=== PATIENT | female | born 1990 | race Caucasian/White ===

== ENCOUNTER 2017-06-24 06:32 | Emergency (ER) | payer MEDICAID ==
[~2017-06-24] VITALS: Ht 162.6 cm; Wt 74.0 kg
[~2017-06-24 06:32] MED LIST: INSU100C4 SQ; LANTUS SQ
[2017-06-24] MEDS ORDERED: DIPH25CA83 PO (06:54)
[2017-06-24] MEDS ORDERED: NAPR-56 PO (06:54)
[2017-06-24] MEDS ORDERED: AZIT250T PO (06:54)
[2017-06-24] MEDS ORDERED: LORA10TA61 PO (06:54)
[2017-06-24] MEDS ORDERED: naproxen 500mg tablet PO ONE (06:55)
[2017-06-24 07:05] VITALS: BP 143/76
== END 2017-06-24 07:06 | disposition home or self-care (01) ==
LOC: ER 06:32
DX: H66.93 Otitis media, unspecified, bilateral (principal); E11.9 Type 2 diabetes mellitus without complications; Z79.4 Long term (current) use of insulin; Z79.899 Other long term (current) drug therapy
CPT/HCPCS: 99283

== ENCOUNTER 2018-03-07 20:57 | Emergency (ER) | payer MEDICAID ==
[~2018-03-07] VITALS: Ht 162.6 cm; Wt 57.4 kg
[~2018-03-07 20:57] MED LIST changes: +AZIT250T PO; +DIPH25CA83 PO; +LORA10TA61 PO
[2018-03-07 20:59] VITALS: BP 116/76
[2018-03-07] MEDS ORDERED: AMOX-580 PO (21:24)
== END 2018-03-07 21:58 | disposition home or self-care (01) ==
LOC: ER 20:58
DX: J32.9 Chronic sinusitis, unspecified (principal); E11.9 Type 2 diabetes mellitus without complications; Z98.890 Other specified postprocedural states; Z79.2 Long term (current) use of antibiotics; Z79.4 Long term (current) use of insulin; Z79.899 Other long term (current) drug therapy
CPT/HCPCS: 99283

== ENCOUNTER 2019-03-12 21:51 | Emergency (ER) | payer MEDICAID ==
[~2019-03-12] VITALS: Ht 162.6 cm; Wt 67.8 kg
[2019-03-12 22:10] VITALS: BP 114/72
[2019-03-12] MEDS ORDERED: mupirocin 2% ointment 22GM TP STA (22:30)
[2019-03-12 22:31] LABS: URINE HCG NEGATIVE (NEG)
[2019-03-12 22:52] LABS: CLARITY,URINE SLIGHTLY CLOUDY (Clear); COLOR,URINE YELLOW (Yellow); GLUCOSE, URINE >=1000 mg/dl (Neg); KETONES,URINE NEGATIVE (Neg); LEUKOCYTE ESTERASE ,URINE TRACE (Neg); NITRITES, URINE NEGATIVE (Neg); OCCULT BLOOD,URINE SMALL (Neg); PH,URINE 6.5 (4.8-8.0); PROTEIN,URINE NEGATIVE (Neg); UA COLLECTION TYPE CLN CATCH MIDSTREAM; UROBILINOGEN,URINE 0.2 E.U/dL (0.2-1.0)
[2019-03-12 23:05] LABS: BACTERIA,URINE FEW /HPF (Neg); MUCUS STRANDS NONE SEEN /LPF (Neg); SQUAMOUS EPITHELIAL CELL,UR FEW /LPF (FEW); WBC CLUMPS,URINE MODERATE /HPF (NEGATIVE); WBC,URINE 20-30 /HPF (0-4)
[2019-03-12] MEDS ORDERED: cephalexin 250mg capsule PO ONE (23:10)
[2019-03-12] MEDS ORDERED: phenazopyridine 100mg tablet PO ONE (23:10)
[2019-03-12] MEDS ORDERED: CEPH500C5 PO (23:15)
[2019-03-12] MEDS ORDERED: FLUC150T66 PO (23:36)
== END 2019-03-13 00:08 | disposition home or self-care (01) ==
LOC: ER 21:52
DX: N39.0 Urinary tract infection, site not specified (principal); K13.0 Diseases of lips; E11.9 Type 2 diabetes mellitus without complications; F17.210 Nicotine dependence, cigarettes, uncomplicated; Z79.2 Long term (current) use of antibiotics; Z79.4 Long term (current) use of insulin; Z79.899 Other long term (current) drug therapy; Z98.890 Other specified postprocedural states
CPT/HCPCS: 81001; 81025; 87077; 87088; 87186; 99284

== ENCOUNTER 2020-09-14 20:09 | Emergency (ER) | payer MEDICAID ==
[~2020-09-14] VITALS: Ht 162.6 cm; Wt 49.6 kg
[2020-09-14 20:30] VITALS: BP 116/77
--- NOTE | 2020-09-14 22:13 | NUR ---
I WAS NOTIFIED BY THE PA THAT THE PATIENT WAS NOT IN THE ROOM AND HADN'T BEEN FOR QUITE SOME TIME. THE PATIENT WAS IN THE BATHROOM NEAR REGISTRATION AND WHEN WE KNOCKED ON THE DOOR SHE STATED SHE WAS STILL USING THE BATHROOM AND THEN FLUSHED THE TOILET AND EXITED. THERE WAS A STRONG SMOKE LIKE ODOR IN THE BATHROOM AND DRUG PARAPHERNALIA ON THE FLOOR. [facility] WAS CONTACTED TO DISPOSE OF THE CONTRABAND. PT WENT BACK TO THE ROOM TO BE SEEN BY THE PROVIDER
[2020-09-14] MEDS ORDERED: azithromycin 250mg tablet PO ONE (22:30)
[2020-09-14] MEDS ORDERED: CefTRIAXone 250MG IM Kit w/LIDOcaine IM ONE (22:30)
[2020-09-14] MEDS ORDERED: fluconazole 150mg tablet PO ONE (22:30)
[2020-09-14] MEDS ORDERED: metroNIDAZOLE 500mg tablet PO ONE (22:30)
[2020-09-14] MEDS ORDERED: PENICILLIN G BENZATHINE 2,400,000 UNIT/4 ML SYRINGE IM ONE (22:30)
--- NOTE | 2020-09-14 23:20 | NUR ---
Pt refused axb injections, but took PO medications. Pt stated she wanted to get a second opinion before being injected with abx. Pt left room and ER before recieving discharge instructions and paperwork.
== END 2020-09-14 23:26 | disposition home or self-care (01) ==
LOC: ER 20:10
DX: Q89.8 Other specified congenital malformations (principal); R21 Rash and other nonspecific skin eruption; R53.83 Other fatigue; E11.9 Type 2 diabetes mellitus without complications; Z98.890 Other specified postprocedural states; Z79.2 Long term (current) use of antibiotics; Z79.4 Long term (current) use of insulin; Z79.899 Other long term (current) drug therapy
CPT/HCPCS: 99284; J3490

== ENCOUNTER 2023-06-06 07:08 | Inpatient (IN) | payer MEDICAID ==
[~2023-06-06] VITALS: Ht 162.6 cm; Wt 50.9 kg
[~2023-06-06 07:08] MED LIST changes: +ATEN50TA41 PO; -AZIT250T PO; -DIPH25CA83 PO; -INSU100C4 SQ; +INSU100I52 SQ; +INSU100I75 SQ; -LANTUS SQ; +LEVO750T68 PO; -LORA10TA61 PO; +NEED-137 SUBCUT
[2023-06-06] MEDS ORDERED: Neutra Phos packet PO PRN (07:20)
[2023-06-06] MEDS ORDERED: insulin regular, human U-100 3ml vial - multi-dose IV PRN (07:20)
[2023-06-06] MEDS ORDERED: potassium Cl 40MEQ/1/2NS 520ml 520 ML IV PRN ×3 (07:20→10:15)
[2023-06-06] MEDS ORDERED: sodium phosphate inj. 15 MMOL in dextrose 5%-water 250 ML IV PRN (07:20)
[2023-06-06] MEDS ORDERED: sodium phosphate inj. 30 MMOL in dextrose 5%-water 250 ML IV PRN (07:20)
[2023-06-06] MEDS ORDERED: Insulin Reg/NS 100units/100mL 100 ML IV SCH (07:20)
[2023-06-06] MEDS ORDERED: sodium bicarbonate (8.4%) inj. 50 MEQ in dextrose 5% water 500ml 250 ML IV PRN (07:20)
[2023-06-06] MEDS ORDERED: potassium Cl 20 mEq SR tablet PO PRN ×6 (07:20→10:15)
[2023-06-06] MEDS ORDERED: potassium CL 20mEq in D5-1/2NS 1,000 ML IV PRN (07:20)
[2023-06-06] MEDS ORDERED: sodium bicarbonate (8.4%) inj. 100 MEQ in dextrose 5% water 500ml 500 ML IV PRN (07:20)
[2023-06-06] MEDS: normal saline 1000ml 1,000 ML IV SCH ×5 (07:29→15:20)
[2023-06-06] MEDS ORDERED: diphenhydrAMINE 50 mg/ml inj IV ONE (07:30)
[2023-06-06] MEDS ORDERED: metoclopramide 5 mg/ml inj IV ONE (07:30)
[2023-06-06 08:12] LABS: ALBUMIN 3.9 G/DL (3.4-5.0); ANION GAP 26 (8-16); BASOPHILS % (AUTO) 0.1 % (0-1); BLOOD UREA NITROGEN 18 MG/DL (7-18); BUN/CREATININE RATIO 15.8 (10.0-20.0); CALCIUM 10.7 MG/DL (8.5-10.1); CHLORIDE 94 MMOL/L (99-107); CREATININE 1.14 MG/DL (0.40-0.90); EOSINOPHILS % (AUTO) 0 % (0-6); HEMATOCRIT 45.3 % (35.0-45.0); HEMOGLOBIN 14.2 g/dl (12.0-16.0); LYMPHOCYTES # (AUTO) 1.3 X10'3 (1.1-4.8); LYMPHOCYTES % (AUTO) 4.9 % (21-51); MEAN CORPUSCULAR HEMOGLOBIN 24.2 PG (27.0-31.0); MEAN CORPUSCULAR HGB CONC 31.4 g/dL (33.0-36.5); MEAN CORPUSCULAR VOLUME 77.2 FL (78-98); MEAN PLATELET VOLUME 9.5 FL (7.4-10.4); MONOCYTES # (AUTO) 1.2 X10'3 (0-0.9); MONOCYTES % (AUTO) 4.6 % (2-12); NEUTROPHILS # (AUTO) 23.8 X10'3 (1.8-7.7); NEUTROPHILS % (AUTO) 90.4 % (42-75); PLATELET COUNT 490 X10'3 (140-440); PRO BRAIN NATRIURETIC PEPTIDE 203 PG/ML (0-125); RED BLOOD COUNT 5.87 X10'6 (4.20-5.60); RED CELL DISTRIBUTION WIDTH 15.4 % (11.5-14.5); SODIUM 138 MMOL/L (135-145); TOTAL CARBON DIOXIDE 17.7 MMOL/L (24-32); eCRCL 49 ML/MIN; eGFR 55 ML/MIN
[2023-06-06 08:15] LABS: GLUCOSE 490 MG/DL (70-104); POTASSIUM 2.9 MMOL/L (3.5-5.1)
[2023-06-06 08:18] LABS: WHITE BLOOD COUNT 26.4 X10'3 (4.5-11.0)
[2023-06-06] MEDS: potassium Cl 40MEQ/1/2NS 520ml 520 ML IV PRN ×2 (08:42→13:14)
[2023-06-06] MEDS: K and/or MAG REPLACEMENT MC SCH ×2 (08:46→20:00)
[2023-06-06] MEDS ORDERED: potassium Cl 20 mEq SR tablet PO STA (08:56)
[2023-06-06] MEDS ORDERED: insulin regular, human 10 units/0.1 ml syringe SQ ONE (09:00)
[2023-06-06 09:17] LABS: HYPOCHROMASIA 1+; MICROCYTOSIS 1+; PLATELET ESTIMATE INCREASED; TOTAL CELLS COUNTED 100
[2023-06-06 09:18] LABS: BURR CELLS 1+; SCHISTOCYTES FEW
[2023-06-06] MEDS ORDERED: MESSAGE TO PHARMACY PO ONE (10:10)
[2023-06-06] MEDS ORDERED: HYDROcodone/acetaminophen 5mg/325mg tablet PO PRN (10:10)
[2023-06-06] MEDS ORDERED: magnesium 4gm in 100ml NS 100 ML IV PRN ×2 (10:10→10:15)
[2023-06-06] MEDS ORDERED: morphine 2 MG/ML inj. syringe IV PRN (10:10)
[2023-06-06] MEDS ORDERED: magnesium 2GM in 50ml NS 50 ML IV PRN ×2 (10:10→10:15)
[2023-06-06] MEDS: potassium Cl 20mEq in NS 1,000 ML IV SCH ×3 (10:10→23:47)
[2023-06-06] MEDS ORDERED: dextrose 50%-water 50ml dispensing syringe IV PRN ×2 (10:10)
[2023-06-06] MEDS ORDERED: acetaminophen 325mg tablet PO PRN ×2 (10:10)
[2023-06-06] MEDS ORDERED: ondansetron/PF 4mg/2ml inj IV PRN (10:10)
[2023-06-06] MEDS ORDERED: glucagon, human recombinant 1mg kit SUBCUT PRN (10:10)
[2023-06-06] MEDS ORDERED: DEXTROSE 15 GM of carb/4 tabs (each vial/BOTTLE has 4 tablets) PO PRN ×2 (10:10)
[2023-06-06] MEDS ORDERED: magnesium Cl slow-release 64mg tablet PO PRN (10:15)
[2023-06-06] MEDS ORDERED: CefTRIAXone 2gm/D5W 50ml BAG 50 ML IV ONE (10:15)
[2023-06-06 11:55] LABS: ALBUMIN 2.9 G/DL (3.4-5.0); ANION GAP 17 (8-16); BLOOD UREA NITROGEN 17 MG/DL (7-18); CALCIUM 8.3 MG/DL (8.5-10.1); CHLORIDE 103 MMOL/L (99-107); CREATININE 0.81 MG/DL (0.40-0.90); GLUCOSE 347 MG/DL (70-104); PHOSPHORUS 2.4 MG/DL (2.3-4.5); POTASSIUM 3.4 MMOL/L (3.5-5.1); SODIUM 138 MMOL/L (135-145); eCRCL 70 ML/MIN; eGFR 81 ML/MIN
[2023-06-06] MEDS: morphine 2 MG/ML inj. syringe IV PRN ×2 (13:17→19:55)
[2023-06-06] MEDS ORDERED: normal saline 1000ml 1,000 ML IV ONE (14:15)
[2023-06-06 15:49] LABS: ALBUMIN 2.9 G/DL (3.4-5.0); ANION GAP 15 (8-16); BLOOD UREA NITROGEN 15 MG/DL (7-18); BUN/CREATININE RATIO 19.7 (10.0-20.0); CALCIUM 8.3 MG/DL (8.5-10.1); CHLORIDE 105 MMOL/L (99-107); CREATININE 0.76 MG/DL (0.40-0.90); GLUCOSE 252 MG/DL (70-104); POTASSIUM 3.9 MMOL/L (3.5-5.1); SODIUM 138 MMOL/L (135-145); TOTAL CARBON DIOXIDE 17.9 MMOL/L (24-32); eCRCL 74 ML/MIN; eGFR 87 ML/MIN
[2023-06-06] MEDS ORDERED: oxyCODONE SR 10mg (sust. release) tab PO ONE (18:05)
[2023-06-06 19:30] VITALS: BP 100/70; PULSE 111; RESP 16; TEMP 98.2; O2SAT 100
[2023-06-06] MEDS: heparin, porcine 5000 units/ml vial SQ SCH (19:55)
[2023-06-06 20:00] VITALS: RESP 18; O2SAT 96
[2023-06-06] MEDS ORDERED: K and/or MAG REPLACEMENT MC SCH (20:00)
[2023-06-06 22:00] VITALS: BP 135/93; PULSE 101; RESP 16; TEMP 98; O2SAT 100
[2023-06-06] MEDS: insulin glargine (Lantus) pen - multi-dose SQ SCH (22:44)
[2023-06-06] MEDS: HYDROcodone/acetaminophen 10/325mg tab PO PRN (23:54)
[2023-06-07] VITALS (8 sets, daily range): BP systolic 121–135; BP diastolic 70–84; PULSE 67–112; RESP 16–24; TEMP 97.6–98.8; O2SAT 96–100
[2023-06-07] MEDS: morphine 2 MG/ML inj. syringe IV PRN ×4 (04:16→23:01)
[2023-06-07] MEDS: potassium Cl 20mEq in NS 1,000 ML IV SCH ×2 (06:25→13:33)
[2023-06-07] MEDS: HYDROcodone/acetaminophen 10/325mg tab PO PRN (08:57)
[2023-06-07] MEDS: heparin, porcine 5000 units/ml vial SQ SCH ×2 (08:59→20:46)
[2023-06-07] MEDS: insulin Lispro (HumaLOG) vial - multi-dose SQ SCH ×2 (10:29→13:38)
[2023-06-07 10:51] LABS: BASOPHILS % (AUTO) 0.2 % (0-1); EOSINOPHILS % (AUTO) 0 % (0-6); HEMATOCRIT 34.4 % (35.0-45.0); LYMPHOCYTES # (AUTO) 2.9 X10'3 (1.1-4.8); LYMPHOCYTES % (AUTO) 13.9 % (21-51); MEAN CORPUSCULAR HEMOGLOBIN 23.9 PG (27.0-31.0); MEAN CORPUSCULAR HGB CONC 31.9 g/dL (33.0-36.5); MEAN PLATELET VOLUME 9.3 FL (7.4-10.4); MONOCYTES # (AUTO) 1.3 X10'3 (0-0.9); NEUTROPHILS # (AUTO) 16.7 X10'3 (1.8-7.7); NEUTROPHILS % (AUTO) 79.9 % (42-75); PLATELET COUNT 314 X10'3 (140-440); RED BLOOD COUNT 4.58 X10'6 (4.20-5.60); RED CELL DISTRIBUTION WIDTH 15.1 % (11.5-14.5); WHITE BLOOD COUNT 20.9 X10'3 (4.5-11.0)
[2023-06-07 11:22] LABS: ALANINE AMINOTRANSFERASE 12 U/L (12-78); ALBUMIN 2.4 G/DL (3.4-5.0); ALBUMIN/GLOBULIN RATIO 0.7 (1.1-1.5); ALKALINE PHOSPHATASE 97 IU/L (46-116); ANION GAP 12 (8-16); ASPARTATE AMINO TRANSFERASE 11 U/L (10-37); BILIRUBIN,TOTAL 0.4 MG/DL (0.1-1.0); BLOOD UREA NITROGEN 6 MG/DL (7-18); BUN/CREATININE RATIO 11.8 (10.0-20.0); CALCIUM 7.8 MG/DL (8.5-10.1); CHLORIDE 98 MMOL/L (99-107); CREATININE 0.51 MG/DL (0.40-0.90); GLUCOSE 200 MG/DL (70-104); MAGNESIUM 1.3 MG/DL (1.5-2.4); PHOSPHORUS 1.6 MG/DL (2.3-4.5); POTASSIUM 3.1 MMOL/L (3.5-5.1); SODIUM 131 MMOL/L (135-145); TOTAL CARBON DIOXIDE 20.9 MMOL/L (24-32); TOTAL PROTEIN 5.9 G/DL (6.4-8.2); eCRCL 125 ML/MIN; eGFR > 90 ML/MIN
[2023-06-07] MEDS: magnesium Cl slow-release 64mg tablet PO PRN ×2 (11:31→17:53)
[2023-06-07] MEDS: K and/or MAG REPLACEMENT MC SCH ×2 (12:03→20:00)
[2023-06-07] MEDS: Neutra Phos packet PO SCH ×2 (13:33→20:37)
[2023-06-07 14:07] LABS: BILIRUBIN,URINE NEGATIVE (Neg); CLARITY,URINE SLIGHTLY CLOUDY (Clear); COLOR,URINE YELLOW (Yellow); GLUCOSE, URINE 500 mg/dl (Neg); KETONES,URINE >=80 mg/dl (Neg); LEUKOCYTE ESTERASE ,URINE TRACE (Neg); NITRITES, URINE NEGATIVE (Neg); OCCULT BLOOD,URINE NEGATIVE (Neg); PH,URINE 5.5 (4.8-8.0); PROTEIN,URINE NEGATIVE (Neg); UROBILINOGEN,URINE 0.2 E.U/dL (0.2-1.0)
[2023-06-07 14:12] LABS: UA COLLECTION TYPE NON-SPECIFIED
[2023-06-07 14:13] LABS: BACTERIA,URINE FEW /HPF (Neg); MUCUS STRANDS NONE SEEN /LPF (Neg); RBC,URINE NONE SEEN /HPF (0-2); SQUAMOUS EPITHELIAL CELL,UR FEW /LPF (FEW); WBC,URINE 0-4 /HPF (0-4)
[2023-06-07] MEDS: potassium Cl 40MEQ/1/2NS 520ml 520 ML IV PRN (17:53)
[2023-06-07] MEDS ORDERED: pantoprazole 40mg Tablet.DR PO SCH (20:00)
[2023-06-07] MEDS: insulin glargine (Lantus) pen - multi-dose SQ SCH (20:45)
== END 2023-06-08 00:05 | disposition left against medical advice (07) | DRG 420 ==
LOC: ER 07:09 → ED HOLD 10:15 → PCU 3S 19:20
PROVIDERS: ADMIT Internal Medicine; ATTEND Internal Medicine
DX: E10.10 Type 1 diabetes mellitus with ketoacidosis without coma (principal); E86.0 Dehydration; E87.6 Hypokalemia; F11.23 Opioid dependence with withdrawal; F17.210 Nicotine dependence, cigarettes, uncomplicated; Z79.4 Long term (current) use of insulin; Z98.891 History of uterine scar from previous surgery; Z79.899 Other long term (current) drug therapy
CPT/HCPCS: 36415; 71045; 80048; 80053; 81001; 82948; 83605; 83735; 83880; 84100; 84145; 84484; 85007; 85025; 85651; 87040; 87077; 87081; 87088; 87186; 93005; 93306; 99285; G0378; J0696; J1200; J1644; J1815; J2270; J2405; J2765; J3480; J7030

== ENCOUNTER 2023-06-11 21:14 | Emergency (ER) | payer MEDICAID | END 2023-06-11 22:31 | disposition left against medical advice (07) | LOC: ER 21:14 | DX: Z76.0 Encounter for issue of repeat prescription (principal); Z53.21 Procedure and treatment not carried out due to patient leaving prior to being seen by health care provider ==

== ENCOUNTER 2023-08-10 11:18 | Emergency (ER) | payer MEDICAID ==
[~2023-08-10] VITALS: Ht 162.6 cm; Wt 42.0 kg
[2023-08-10 11:22] VITALS: TEMP 98.6
[2023-08-10 13:53] LABS: BASOPHILS # (AUTO) 0.1 X10'3 (0-0.2); BASOPHILS % (AUTO) 0.7 % (0-1); EOSINOPHILS # (AUTO) 0.2 X10'3 (0-0.9); EOSINOPHILS % (AUTO) 1.5 % (0-6); HEMATOCRIT 35.4 % (35.0-45.0); HEMOGLOBIN 11.4 g/dl (12.0-16.0); LYMPHOCYTES # (AUTO) 1.9 X10'3 (1.1-4.8); LYMPHOCYTES % (AUTO) 16.9 % (21-51); MEAN CORPUSCULAR HEMOGLOBIN 24.2 PG (27.0-31.0); MEAN CORPUSCULAR HGB CONC 32.2 g/dL (33.0-36.5); MEAN CORPUSCULAR VOLUME 75.1 FL (78-98); MEAN PLATELET VOLUME 8.2 FL (7.4-10.4); MONOCYTES # (AUTO) 0.7 X10'3 (0-0.9); MONOCYTES % (AUTO) 5.9 % (2-12); NEUTROPHILS # (AUTO) 8.6 X10'3 (1.8-7.7); PLATELET COUNT 312 X10'3 (140-440); RED BLOOD COUNT 4.71 X10'6 (4.20-5.60); RED CELL DISTRIBUTION WIDTH 19.1 % (11.5-14.5); WHITE BLOOD COUNT 11.5 X10'3 (4.5-11.0)
[2023-08-10 14:01] LABS: ALANINE AMINOTRANSFERASE 29 U/L (12-78); ALBUMIN 2.6 G/DL (3.4-5.0); ALBUMIN/GLOBULIN RATIO 0.7 (1.1-1.5); ALKALINE PHOSPHATASE 213 IU/L (46-116); ANION GAP 8 (8-16); ASPARTATE AMINO TRANSFERASE 22 U/L (10-37); BILIRUBIN,TOTAL 0.2 MG/DL (0.1-1.0); BLOOD UREA NITROGEN 9 MG/DL (7-18); BUN/CREATININE RATIO 17.3 (10.0-20.0); CALCIUM 8.7 MG/DL (8.5-10.1); CHLORIDE 101 MMOL/L (99-107); CREATININE 0.52 MG/DL (0.40-0.90); GLUCOSE 136 MG/DL (70-104); LIPASE 16 U/L (16-77); POTASSIUM 3.8 MMOL/L (3.5-5.1); SODIUM 137 MMOL/L (135-145); TOTAL CARBON DIOXIDE 28.1 MMOL/L (24-32); TOTAL PROTEIN 6.5 G/DL (6.4-8.2); eCRCL 101 ML/MIN; eGFR > 90 ML/MIN
[2023-08-10 14:40] VITALS: BP 120/86; PULSE 71; RESP 16; O2SAT 97
[2023-08-10] MEDS ORDERED: ondansetron/PF 4mg/2ml inj IV ONE (15:50)
[2023-08-10] MEDS ORDERED: LORazepam 2 mg/ml vial IV ONE (15:50)
[2023-08-10] MEDS ORDERED: metoclopramide 5 mg/ml inj IV ONE (15:50)
[2023-08-10] MEDS ORDERED: pantoprazole 40 MG vial IV ONE (15:51)
[2023-08-10 18:22] LABS: ANISOCYTOSIS 2+; MICROCYTOSIS 1+; PLATELET ESTIMATE NORMAL
[2023-08-10 18:24] LABS: POIKILOCYTOSIS FEW
[2023-08-10 18:25] LABS: BURR CELLS FEW; ELLIPTOCYTES 1+; SCHISTOCYTES FEW
== END 2023-08-10 16:49 | disposition left against medical advice (07) ==
LOC: ER 11:18
DX: K31.84 Gastroparesis (principal); K20.90 Esophagitis, unspecified without bleeding; R11.0 Nausea; E11.9 Type 2 diabetes mellitus without complications; F17.200 Nicotine dependence, unspecified, uncomplicated; F11.10 Opioid abuse, uncomplicated; Z91.148 Patient's other noncompliance with medication regimen for other reason; Z93.1 Gastrostomy status; Z79.4 Long term (current) use of insulin; Z79.899 Other long term (current) drug therapy; Z79.2 Long term (current) use of antibiotics
CPT/HCPCS: 36415; 80053; 83690; 85008; 85025; 99283; 99284

== ENCOUNTER 2023-08-17 19:26 | Emergency (ER) | payer MEDICAID ==
[~2023-08-17] VITALS: Ht 162.6 cm; Wt 44.5 kg
[2023-08-17 19:46] VITALS: BP 134/89; PULSE 84; RESP 19; TEMP 99; O2SAT 94
[2023-08-17] MEDS ORDERED: normal saline 1000ml 1,000 ML IV ONE (20:05)
[2023-08-17] MEDS ORDERED: ondansetron/PF 4mg/2ml inj IV ONE (20:05)
[2023-08-17 20:26] LABS: BASOPHILS # (AUTO) 0.1 X10'3 (0-0.2); BASOPHILS % (AUTO) 0.5 % (0-1); EOSINOPHILS % (AUTO) 0.1 % (0-6); HEMATOCRIT 37.6 % (35.0-45.0); HEMOGLOBIN 12.2 g/dl (12.0-16.0); LYMPHOCYTES # (AUTO) 1.7 X10'3 (1.1-4.8); LYMPHOCYTES % (AUTO) 11.9 % (21-51); MEAN CORPUSCULAR HEMOGLOBIN 24.4 PG (27.0-31.0); MEAN CORPUSCULAR HGB CONC 32.6 g/dL (33.0-36.5); MEAN CORPUSCULAR VOLUME 74.8 FL (78-98); MONOCYTES # (AUTO) 0.5 X10'3 (0-0.9); MONOCYTES % (AUTO) 3.7 % (2-12); NEUTROPHILS # (AUTO) 12.1 X10'3 (1.8-7.7); NEUTROPHILS % (AUTO) 83.8 % (42-75); PLATELET COUNT 374 X10'3 (140-440); RED BLOOD COUNT 5.03 X10'6 (4.20-5.60); RED CELL DISTRIBUTION WIDTH 19.7 % (11.5-14.5); WHITE BLOOD COUNT 14.4 X10'3 (4.5-11.0)
[2023-08-17 20:36] LABS: HCG SERUM QL NEGATIVE
[2023-08-17 20:45] LABS: ALANINE AMINOTRANSFERASE 16 U/L (12-78); ALBUMIN 3.2 G/DL (3.4-5.0); ALBUMIN/GLOBULIN RATIO 0.8 (1.1-1.5); ALKALINE PHOSPHATASE 147 IU/L (46-116); ANION GAP 15 (8-16); ASPARTATE AMINO TRANSFERASE 9 U/L (10-37); BILIRUBIN,TOTAL 0.3 MG/DL (0.1-1.0); BLOOD UREA NITROGEN 11 MG/DL (7-18); BUN/CREATININE RATIO 12.6 (10.0-20.0); CALCIUM 9.5 MG/DL (8.5-10.1); CHLORIDE 102 MMOL/L (99-107); CREATININE 0.87 MG/DL (0.40-0.90); GLUCOSE 270 MG/DL (70-104); LIPASE 13 U/L (16-77); POTASSIUM 3.7 MMOL/L (3.5-5.1); SODIUM 144 MMOL/L (135-145); TOTAL CARBON DIOXIDE 27.5 MMOL/L (24-32); TOTAL PROTEIN 7.4 G/DL (6.4-8.2); eCRCL 64 ML/MIN; eGFR 75 ML/MIN
[2023-08-17 22:04] LABS: ANISOCYTOSIS 2+; MICROCYTOSIS 1+; PLATELET ESTIMATE NORMAL
[2023-08-17 22:06] LABS: BURR CELLS FEW; ELLIPTOCYTES 1+; SCHISTOCYTES FEW
== END 2023-08-18 02:11 | disposition left against medical advice (07) ==
LOC: ER 19:27
DX: R11.10 Vomiting, unspecified (principal); Z53.21 Procedure and treatment not carried out due to patient leaving prior to being seen by health care provider
CPT/HCPCS: 36415; 80053; 83690; 84703; 85008; 85025; 99281

== ENCOUNTER 2024-05-06 11:45 | Outpatient (CLI) | payer MEDICAID | END 2024-05-06 23:59 | disposition home or self-care (01) | LOC: RAD 11:45 | PROVIDERS: ATTEND Physician Assistant | DX: R94.31 Abnormal electrocardiogram [ECG] [EKG] (principal); F11.20 Opioid dependence, uncomplicated | CPT/HCPCS: 93005 ==

== ENCOUNTER 2024-05-18 09:33 | Day surgery (SDC) | payer MEDICAID ==
[2024-05-18] VITALS (8 sets, daily range): BP systolic 85–103; BP diastolic 55–65; PULSE 61–72; RESP 9–20; TEMP 98.1; O2SAT 98–100
[~2024-05-18] VITALS: Ht 162.6 cm; Wt 50.0 kg
[~2024-05-18 09:33] MED LIST changes: -ATEN50TA41 PO; -LEVO750T68 PO; +METH40TA2 PO
[2024-05-18] MEDS ORDERED: propofol inj 20 ML IV ONE (11:34)
== END 2024-05-18 12:50 | disposition home or self-care (01) ==
LOC: SSTAY O 09:33
PROVIDERS: ATTEND Internal Medicine Gastroenterology
DX: R13.10 Dysphagia, unspecified (principal); K22.2 Esophageal obstruction; F17.210 Nicotine dependence, cigarettes, uncomplicated; E11.9 Type 2 diabetes mellitus without complications; Z79.899 Other long term (current) drug therapy; Z98.890 Other specified postprocedural states
CPT/HCPCS: 43235; 43450; J2704; J7030; Z7512; A4620